=== PATIENT | female | born 1950 | race Hispanic/Latino ===

== ENCOUNTER 2021-05-19 08:13 | Outpatient (CLI) | payer MEDICARE | END 2021-05-19 08:14 | disposition home or self-care (01) | LOC: CSHWCC 08:13 | PROVIDERS: ATTEND Nurse Practitioner Family | DX: T81.89XA Other complications of procedures, not elsewhere classified, initial encounter (principal); R60.0 Localized edema | CPT/HCPCS: 11042; 87070; 87077; 87205; 97139; 97607; G0463; 99203 ==